=== PATIENT | male | born 1955 | race Caucasian/White ===

== ENCOUNTER → 2021-05-10 | Emergency (ER) | payer SELFPAY | END | disposition home or self-care (01) | DRG 951 | LOC: ED 12:57 → LWOBS 15:33 | DX: Z53.21 Procedure and treatment not carried out due to patient leaving prior to being seen by health care provider (principal) ==

== ENCOUNTER 2021-05-11 03:21 | Emergency (ER) | payer MEDICARE ==
[~2021-05-11] VITALS: Ht 172.7 cm; Wt 67.0 kg
[2021-05-11 03:41] VITALS: BP 137/99
[2021-05-11 03:45] VITALS: BP 145/103
[2021-05-11 04:00] VITALS: BP 138/93
[2021-05-11 04:11] VITALS: BP 138/93
== END 2021-05-11 04:17 | disposition home or self-care (01) ==
LOC: ED 03:21
DX: Z43.8 Encounter for attention to other artificial openings (principal); K82.8 Other specified diseases of gallbladder; F17.210 Nicotine dependence, cigarettes, uncomplicated